=== PATIENT | female | born 1970 | race Native Hawaiian/Other Pacific Islander ===

== ENCOUNTER 2018-09-25 11:00 | Emergency (ER) | payer OTHER ==
[~2018-09-25] VITALS: Ht 172.7 cm; Wt 90.7 kg
[2018-09-25] MEDS ORDERED: GABA300C2 PO (11:20)
[2018-09-25] MEDS ORDERED: BUSPIRONE HYDRO30 MG PO (11:21)
[2018-09-25] MEDS ORDERED: HYDR10TA47 PO (11:21)
[2018-09-25] MEDS ORDERED: LAMICTAL200 MG PO (11:22)
[2018-09-25] MEDS ORDERED: LOVASTATIN10 MG PO (11:22)
[2018-09-25] MEDS ORDERED: DIVA250T PO (11:23)
[2018-09-25] MEDS ORDERED: LISI20TA11 PO (11:47)
[2018-09-25] MEDS ORDERED: OMEPRAZOLE DR40 MG PO (11:47)
[2018-09-25] MEDS ORDERED: HYDR25TA60 PO (11:48)
[2018-09-25 12:35] VITALS: BP 142/79; TEMP 98.1
== END 2018-09-25 12:35 | disposition home or self-care (01) ==
LOC: ED 11:00
DX: M25.572 Pain in left ankle and joints of left foot (principal); Z87.81 Personal history of (healed) traumatic fracture; Z98.890 Other specified postprocedural states; W10.9XXA Fall (on) (from) unspecified stairs and steps, initial encounter
CPT/HCPCS: 99283

== ENCOUNTER 2019-01-13 09:07 | Emergency (ER) | payer OTHER ==
[~2019-01-13] VITALS: Ht 172.7 cm; Wt 101.6 kg
[~2019-01-13 09:07] MED LIST: BUSPIRONE HYDRO30 MG PO; DIVA250T PO; GABA300C2 PO; HYDR10TA47 PO; HYDR25TA60 PO; LAMICTAL200 MG PO; LISI20TA11 PO; LOVASTATIN10 MG PO; OMEPRAZOLE DR40 MG PO
[2019-01-13 09:15] VITALS: BP 121/74; TEMP 97.7
== END 2019-01-13 09:53 | disposition left against medical advice (07) ==
LOC: ED 09:07
DX: M54.5 Low back pain (principal); M25.572 Pain in left ankle and joints of left foot; M25.552 Pain in left hip
CPT/HCPCS: 99281; 99282